=== PATIENT | male | born 2000 | race Caucasian/White ===

== ENCOUNTER 2021-11-14 12:35 | Emergency (ER) | payer OTHER ==
[2021-11-14] MEDS ORDERED: LORazepam 2 MG/ML SDV IVPUSH ONE (13:14)
[2021-11-14] MEDS ORDERED: Lidocaine 1% 20 ML MDV INJECT ONE (13:14)
[2021-11-14] MEDS ORDERED: Acetaminophen/HYDROcodone 325-10 MG Tab PO ONE (13:45)
== END 2021-11-14 14:00 | disposition home or self-care (01) ==
LOC: KA.ED 12:35
DX: S62.612A Displaced fracture of proximal phalanx of right middle finger, initial encounter for closed fracture (principal); S62.614A Displaced fracture of proximal phalanx of right ring finger, initial encounter for closed fracture; W23.0XXA Caught, crushed, jammed, or pinched between moving objects, initial encounter
CPT/HCPCS: 64450; 73130-RT; 73140-RT; 96374; 99284-25; A9270-GY; J2060